=== PATIENT | male | born 1940 | race Caucasian/White ===

== ENCOUNTER 2019-06-24 13:51 | Inpatient (IN) | payer MEDICARE ==
[~2019-06-24] VITALS: Ht 177.8 cm; Wt 62.5 kg
[~2019-06-24 13:51] MED LIST: AMLO5TAB15 PO; ASPI-404 PO; BUDE160A3 IN; CHOL100055 PO; FINA5TAB4 PO; FLUN0.02; HYDR500T13 PO; LEV500T PO; OMEP20CA74 OR; SIMV-8 PO; TERA2CAP45 PO; [UNRECOGNIZED DRUG - CODE] OP; [UNRECOGNIZED DRUG - CODE] TD
[2019-06-24] MEDS ORDERED: IPRATROPIUM BROM 0.5 MG/2.5ML INH SOL NEB ONE (14:30)
[2019-06-24] MEDS ORDERED: methylPREDNISolone SOD SUCC 125 MG/2 ML VL IV ONE (14:30)
[2019-06-24] MEDS ORDERED: ALBUTEROL SULF 2.5 MG/0.5ML(0.5%) NEB SOLN NEB ONE (14:30)
[2019-06-24 14:31] LABS: Basophils # (auto) 0 uL; Basophils % (auto) 0.4 % (0.0-2.0); Eosinophils # (auto) 0.2 uL; Eosinophils % (auto) 2.5 % (0.0-7.0); Hematocrit 40.7 % (41.0-53.0); Hemoglobin 13.1 g/dL (13.5-17.5); Lymphocytes # (auto) 0.7 uL; Lymphocytes % (auto) 8.6 % (10.0-50.0); Mean Corpuscular Hgb Conc. 32.3 g/dL (32.0-36.0); Monocytes # (auto) 0.6 uL; Monocytes % (auto) 7.2 % (0.0-12.0); Neutrophils # (auto) 6.5 uL; Neutrophils % (auto) 81.3 % (37.0-80.0); Nucleated Red Blood Cells % 0.1 %; Platelet Count (auto) 194 10^3/uL (140-450); Red Blood Cells 4.11 10^6/uL (4.5-5.90)
[2019-06-24 14:46] LABS: INR 1.05 (0.9-1.15); Partial Thromboplastin Time 34.3 sec (23.64-32.05)
[2019-06-24 14:54] LABS: Albumin 2.7 g/dL (3.4-5.0); Calcium 8.5 mg/dL (8.5-10.1); Magnesium 2.1 mg/dL (1.6-2.6); Potassium 4.4 mmol/L (3.5-5.1)
[2019-06-24 14:57] LABS: BUN/Creatinine Ratio 10.2; Bilirubin, Total 0.4 mg/dL (0.2-1.0); Total Protein 6.2 g/dL (6.4-8.2)
[2019-06-24] MEDS ORDERED: PROMETHAZINE HCL 25 MG/ML 1ML IV PRN (16:15)
[2019-06-24] MEDS ORDERED: LACTULOSE 20Gm/30ML SOLN PO PRN (16:15)
[2019-06-24] MEDS ORDERED: TEMAZEPAM 15 MG CAP PO PRN (16:15)
[2019-06-24] MEDS ORDERED: NITROGLYCERIN 0.4 MG SL TAB SL PRN (16:15)
[2019-06-24] MEDS ORDERED: MORPHINE SULF INJ 2 MG/ML SYRINGE 1ML IV PRN (16:15)
[2019-06-24] MEDS ORDERED: traMADol HCL 50 MG TAB PO PRN (16:15)
[2019-06-24] MEDS ORDERED: LABETALOL HCL 5 MG/ML ML 20ML VIAL IV PRN (16:15)
[2019-06-24] MEDS ORDERED: ALBUTEROL SULF 2.5 MG/0.5ML(0.5%) NEB SOLN NEB PRN (16:15)
[2019-06-24] MEDS ORDERED: ACETAMINOPHEN 500 MG TAB PO PRN (16:15)
[2019-06-24] MEDS: SODIUM CHLORIDE 0.9% 1,000 ML IV SCH (17:29)
[2019-06-24] MEDS: FINASTERIDE 5 MG TAB PO SCH (18:53)
[2019-06-24] MEDS: ALBUTEROL SULF 2.5 MG/0.5ML(0.5%) NEB SOLN NEB SCH (18:58)
[2019-06-24] MEDS: BUDESONIDE (INHALATION) 0.5 MG/2 ML NEB NEB SCH (18:58)
[2019-06-24] MEDS: IPRATROPIUM BROM 0.5 MG/2.5ML INH SOL NEB SCH (18:58)
[2019-06-24] MEDS: ATORVASTATIN 20 MG TAB PO SCH (20:48)
[2019-06-24] MEDS: amLODIPine BESYLATE 5 MG TAB PO SCH (20:48)
[2019-06-24 21:04] LABS: Urine Bacteria NONE SEEN /hpf (None Seen); Urine Blood Negative /uL (Negative); Urine Specific Gravity 1.013 (1.001-1.035); Urine WBC 1 /hpf (0 - 3)
[2019-06-24] MEDS ORDERED: CAR3125T PO (21:17)
[2019-06-24] MEDS ORDERED: AMIT10TA6 PO (21:17)
[2019-06-24] MEDS ORDERED: FINA5TAB4 PO (21:17)
[2019-06-24] MEDS ORDERED: GABA-339 PO (21:17)
[2019-06-24] MEDS ORDERED: DONETAB5 PO (21:17)
[2019-06-24] MEDS ORDERED: CYAN100056 PO (21:17)
[2019-06-24] MEDS ORDERED: ATOR40TA52 PO (21:17)
[2019-06-24 22:00] VITALS: BP 120/75
[2019-06-24] MEDS ORDERED: BUDESONIDE FORMOTEROL FUMARATE IN SCH (22:00)
[2019-06-24 22:45] VITALS: BP 120/75
[2019-06-25] MEDS: IPRATROPIUM BROM 0.5 MG/2.5ML INH SOL NEB SCH ×5 (00:26→23:58)
[2019-06-25] MEDS: ALBUTEROL SULF 2.5 MG/0.5ML(0.5%) NEB SOLN NEB SCH ×5 (00:27→23:58)
[2019-06-25] MEDS: SODIUM CHLORIDE 0.9% 1,000 ML IV SCH ×2 (04:35→17:05)
[2019-06-25 05:00] VITALS: BP 130/77
[2019-06-25] MEDS: amLODIPine BESYLATE 5 MG TAB PO SCH ×3 (06:20→21:26)
[2019-06-25] MEDS: BUDESONIDE (INHALATION) 0.5 MG/2 ML NEB NEB SCH ×2 (07:35→18:09)
--- NOTE | 2019-06-25 07:40 | NUR ---
Opening Shift Note Assumed care of patient, AOx4. No S/S of distress/SOB or pain. Patient instructed on POC and to call for assistance. Bed positioned low, locked and call light within reach. Will continue to monitor for changes Q1hr and PRN. Signed: 06/25/19 at 1501 by YOANDY PERALES SN <Co-Signature Required> Co-Signed: 06/25/19 at 1501 by Tamika Puga RN
[2019-06-25 08:00] VITALS: BP 123/76
[2019-06-25 09:00] VITALS: BP 116/71
[2019-06-25] MEDS: ASPirin 81 mg TAB PO SCH (10:29)
[2019-06-25] MEDS: ENOXAPARIN SOD 40 MG/0.4 ML SYRINGE SC SCH (10:30)
[2019-06-25] MEDS: PANTOPRAZOLE 40 MG TAB PO SCH (10:30)
--- NOTE | 2019-06-25 11:35 | NUR ---
DR. KELLER AT BEDSIDE POC EXPLAINED TO PATIENT. Signed: 06/25/19 at 1456 by YOANDY PERALES <Co-Signature Required> Co-Signed: 06/25/19 at 1456 by Tamika Puga RN
[2019-06-25] MEDS ORDERED: IOHEXOL 350 MG/ML 100ML IJ ONE (11:36)
--- NOTE | 2019-06-25 12:30 | NUR ---
EKG OBTAINED ABNORMAL EKG OBTAINED. NO S/S OF DISTRESS NOTED IN PATIENT. EKG READ BY DR. MCLEAN, AND HE RECOMMENDS EKG TO BE REPEATED IN 12 HR. Signed: 06/25/19 at 1455 by YOANDY PERALES <Co-Signature Required> Co-Signed: 06/25/19 at 1455 by Tamika Puga RN
[2019-06-25 13:15] VITALS: BP 124/73
--- NOTE | 2019-06-25 13:35 | NUR ---
UA COLLECTED UA COLLECTED AND SENT TO LAB VIA [facility] SYSTEM. Signed: 06/25/19 at 1459 by YOANDY PERALES <Co-Signature Required> Co-Signed: 06/25/19 at 1459 by Tamika Puga RN
[2019-06-25 14:21] LABS: Cannabinoid Screen, Urine NEGATIVE (NEGATIVE)
[2019-06-25 14:25] LABS: Alcohol, Urine < 3.0 mg/dL (0-5); Amphetamine Screen, Urine NEGATIVE (NEGATIVE); Barbiturate Scree,Urine NEGATIVE (NEGATIVE); Benzodiazephine Screen, Urine NEGATIVE (NEGATIVE); Cocaine Screen, Urine NEGATIVE (NEGATIVE); Opiate Scree,Urine NEGATIVE (NEGATIVE); Phencyclidine Screen, Urine NEGATIVE (NEGATIVE)
--- NOTE | 2019-06-25 16:20 | NUR ---
PT BROTHER (RON) BROUGHT HOME MEDICATION, ALL MEDICATIONS HAVE BEEN REVIEWED. Signed: 06/25/19 at 1856 by YOANDY PERALES <Co-Signature Required> Co-Signed: 06/25/19 at 1856 by Tamika Puga RN
[2019-06-25 17:00] VITALS: BP 125/79
[2019-06-25] MEDS ORDERED: CARV3.1240 PO (17:41)
[2019-06-25] MEDS ORDERED: AMIT10TA6 PO (17:41)
[2019-06-25] MEDS: FINASTERIDE 5 MG TAB PO SCH (18:06)
--- NOTE | 2019-06-25 18:57 | NUR ---
IV insertion Patient informed that he accidentally pulled out IV on left AC. No trauma to site, cleansed arm from blood that had leaked. New IV obtained via clean sterile technique by inserting 20 gauge catheter at right forearm after 1 attempt. IV secured properly. No trauma to site. Patient tolerated well. Signed: 06/25/19 at 1900 by YOANDY PERALES <Co-Signature Required> Co-Signed: 06/25/19 at 1900 by Tamika Puga RN
--- NOTE | 2019-06-25 19:01 | NUR ---
CLOSING NOTE PT IN BED NO SIGNS OF DISTRESSED NOTED. BED IN LOW POSITION AND LOCKED. CALL LIGHT WITHIN REACH. WILL GIVE REPORT TO BROOKE NURSE. Signed: 06/25/19 at 190 by YOANDY PERALES <Co-Signature Required> Co-Signed: 06/25/19 at 1901 by Tamika Puga RN
[2019-06-25] MEDS: ATORVASTATIN 20 MG TAB PO SCH (21:26)
[2019-06-25 21:51] VITALS: BP 144/76
--- NOTE | 2019-06-25 23:59 | NUR ---
RT NOTE PT REFUSED 0000 BREATHING TREATMENT DID NOT WANT TO BE WAKEN UP. PT STATED HE NEEDED SLEEP DO NOT WAKE HIM. PT SLEEPING NO DISTRESS NOTED.
[2019-06-26] MEDS: SODIUM CHLORIDE 0.9% 1,000 ML IV SCH ×2 (01:19→17:59)
[2019-06-26 05:01] VITALS: BP 141/84
[2019-06-26] MEDS: amLODIPine BESYLATE 5 MG TAB PO SCH ×3 (05:43→21:40)
[2019-06-26] MEDS: BUDESONIDE (INHALATION) 0.5 MG/2 ML NEB NEB SCH ×2 (06:05→20:33)
[2019-06-26] MEDS: ALBUTEROL SULF 2.5 MG/0.5ML(0.5%) NEB SOLN NEB SCH ×4 (06:05→23:31)
[2019-06-26] MEDS: IPRATROPIUM BROM 0.5 MG/2.5ML INH SOL NEB SCH ×4 (06:05→23:31)
--- NOTE | 2019-06-26 07:30 | NUR ---
Opening Shift Note Assumed care of patient, awake and alert x 4. Pt resting comfortably in bed no S/S of distress/SOB or pain. Pt instructed on POC and to call for assistance PRN, will continue to monitor for changes Q1hr and PRN. Signed: 06/26/19 at 1052 by YOANDY PERALES <Co-Signature Required> Co-Signed: 06/26/19 at 1052 by Tamika Puga RN
[2019-06-26 08:00] VITALS: BP 138/87
[2019-06-26] MEDS: ENOXAPARIN SOD 40 MG/0.4 ML SYRINGE SC SCH (08:59)
[2019-06-26] MEDS: ASPirin 81 mg TAB PO SCH (08:59)
[2019-06-26] MEDS: PANTOPRAZOLE 40 MG TAB PO SCH (08:59)
[2019-06-26 09:00] VITALS: BP 138/87
[2019-06-26] MEDS ORDERED: diphenhdrAMINE HCL 25 MG CAP PO ONE (09:15)
--- NOTE | 2019-06-26 09:30 | NUR ---
DR. Yosvany KELLER AT BEDSIDE PT INSTRUCTED IN POC BY DOCTOR. Signed: 06/26/19 at 1054 by YOANDY PERALES SN <Co-Signature Required> Co-Signed: 06/26/19 at 1054 by Tamika Puga RN
[2019-06-26 16:51] VITALS: BP 139/96
[2019-06-26] MEDS: FINASTERIDE 5 MG TAB PO SCH (17:59)
--- NOTE | 2019-06-26 18:33 | NUR ---
CLOSING NOTE PT IN BED HAVING DINNER NO SIGNS OF DISTRESSED NOTED. BED IN LOW POSITION AND LOCKED. CALL LIGHT WITHIN REACH. WILL GIVE REPORT TO BROOKE NURSE Signed: 06/26/19 at 183 by YOANDY PERALES <Co-Signature Required> Co-Signed: 06/26/19 at 1833 by Tamika Puga RN
--- NOTE | 2019-06-26 19:30 | NUR ---
Opening Shift Note Assumed care of patient, awake and alert. No S/S of distress/SOB or pain. Instructed on POC and to call for assist PRN, will continue to monitor for changes Q1hr and PRN. Signed: 06/26/19 at 2153 by YOANDY CHILDERS SN <Co-Signature Required> Co-Signed: 06/26/19 at 2153 by Felipa Daigle RN
[2019-06-26] MEDS: ATORVASTATIN 20 MG TAB PO SCH (21:40)
[2019-06-26 22:00] VITALS: BP 135/93
[2019-06-26 22:03] VITALS: BP 131/79
--- NOTE | 2019-06-26 23:31 | NUR ---
RT NOTE PT ASKED NOT TO BE WOKEN FOR THIS SCHEDULED TX IF SLEEPING. PT SLEEPING. NO SIGNS OF RESP DISTRESS NOTED BY RT. PT AWARE TO HAVE RT PAGED IF NEEDED. RT NAME AND PAGER NUMBER ON PT BOARD.
[2019-06-27 04:38] VITALS: BP 149/88
[2019-06-27] MEDS: amLODIPine BESYLATE 5 MG TAB PO SCH ×3 (06:07→21:45)
[2019-06-27] MEDS: IPRATROPIUM BROM 0.5 MG/2.5ML INH SOL NEB SCH ×3 (06:11→19:03)
[2019-06-27] MEDS: ALBUTEROL SULF 2.5 MG/0.5ML(0.5%) NEB SOLN NEB SCH ×3 (06:11→19:03)
[2019-06-27] MEDS: BUDESONIDE (INHALATION) 0.5 MG/2 ML NEB NEB SCH ×2 (06:12→19:03)
[2019-06-27] MEDS: SODIUM CHLORIDE 0.9% 1,000 ML IV SCH ×2 (06:36→21:30)
[2019-06-27 08:00] VITALS: BP_SYST 131; BP_SYST 149; BP_DIAS 82; BP_DIAS 88
--- NOTE | 2019-06-27 08:00 | NUR ---
ASSESSMENT NOTE PATIENT IS ALERT ORIENTED X4, RESTING IN BED COMFORTABLY, NO DISTRESS NOTED, ABLE TO SELF REPOSITION AND VERBALIS HIS NEEDS, PATIENT ENCOURAGE TO USE THE CALL LIGHT IF HE NEED ANYTHING OR OR HELP TO WALK TO BATHROOM, VERBALIS UNDERSTANDING, CALL LIGHT WITHIN REACH.
--- NOTE | 2019-06-27 08:35 | NUR ---
DR KELLER AT BED SIDE FOLLOWING UP ON PT, INFORM PT THAT WE ARE WAITING FOR THE ECHO RESULTS, AND FROM THERE WILL DECIDE FOR DISCHARGE PLANING TOMORROW, PT VERBALIS UNDERSTANDING.
[2019-06-27] MEDS: PANTOPRAZOLE 40 MG TAB PO SCH (09:27)
[2019-06-27] MEDS: ASPirin 81 mg TAB PO SCH (09:27)
[2019-06-27] MEDS: ENOXAPARIN SOD 40 MG/0.4 ML SYRINGE SC SCH (09:28)
[2019-06-27 12:30] VITALS: BP 118/65
--- NOTE | 2019-06-27 16:10 | NUR ---
PT CONTINUE STABLE, NO DISTRESS NOTED, USE URINAL NEEDED
[2019-06-27 16:57] VITALS: BP 139/78
[2019-06-27] MEDS: FINASTERIDE 5 MG TAB PO SCH (17:07)
--- NOTE | 2019-06-27 18:34 | NUR ---
DINNER SITTING UP EATING DINNER, NO DISTRESS NOTED, CONTINUE MONITORING
--- NOTE | 2019-06-27 19:30 | NUR ---
Opening Shift Note Assumed care of patient, laying in bed awake and alert. Respirations are normal and non-labored, no S/S of distress/SOB or pain. Instructed on POC and to call for assistance, call light within reach. Safety precautions in place, bed set at lowest position. Will continue to monitor for changes Q1hr and PRN. Signed: 06/27/19 at 2110 by YOANDY CHILDERS SN <Co-Signature Required> Co-Signed: 06/27/19 at 2110 by Minna Jones RN
--- NOTE | 2019-06-27 19:46 | NUR ---
RT NOTE PT WAS SEEN BY RT FOR HHN TX. PT TOLERATES WELL VIA MASK. NO ADVERSE REACTION NOTED. PT REQUESTING TO HAVE THE IV REMOVED. CURTIS JAIMES NOTIFIED. CONT ORDERED Addendum: 06/27/19 at 2012 by Shirley Radford RT Amended: Links added.
--- NOTE | 2019-06-27 19:46 | NUR ---
RT NOTE PT WAS SEEN BY R
--- NOTE | 2019-06-27 19:46 | NUR ---
RT NOTE PT WAS SEEN BY RT FOR HHN TX. PT
[2019-06-27 21:00] VITALS: BP 133/87
[2019-06-27 21:29] VITALS: BP 139/78
[2019-06-27] MEDS: ATORVASTATIN 20 MG TAB PO SCH (21:46)
--- NOTE | 2019-06-28 00:22 | NUR ---
RT NOTE PT WAS SEEN BY RT FOR HHN TX. PT WAS SLEEPING BUT EASILY AWAKENED. PT REFUSED HHN TX RIGHT NOW TO SLEEP AND WILL TAKE IT IN THE MORNING. NO SOB OR DISTRESS NOTED. CURTIS JAIMES NOTIFIED AND WILL CALL IF TX NEEDED Addendum: 06/28/19 at 0024 by Shirley Radford RT Amended: Links added.
[2019-06-28 04:30] VITALS: BP 128/74
[2019-06-28] MEDS: IPRATROPIUM BROM 0.5 MG/2.5ML INH SOL NEB SCH ×3 (06:39→11:42)
[2019-06-28] MEDS: ALBUTEROL SULF 2.5 MG/0.5ML(0.5%) NEB SOLN NEB SCH ×3 (06:39→11:42)
[2019-06-28] MEDS: BUDESONIDE (INHALATION) 0.5 MG/2 ML NEB NEB SCH (06:39)
[2019-06-28] MEDS: amLODIPine BESYLATE 5 MG TAB PO SCH ×2 (06:40→14:15)
[2019-06-28 08:00] VITALS: BP 128/77
--- NOTE | 2019-06-28 08:00 | NUR ---
Opening Shift Note Assumed care of patient, awake and alert. No S/S of distress/SOB or pain. Instructed on POC and to call for assist PRN, will continue to monitor for changes Q1hr and PRN.
[2019-06-28] MEDS: PANTOPRAZOLE 40 MG TAB PO SCH (09:26)
[2019-06-28] MEDS: ENOXAPARIN SOD 40 MG/0.4 ML SYRINGE SC SCH (09:26)
[2019-06-28] MEDS: ASPirin 81 mg TAB PO SCH (09:26)
[2019-06-28] MEDS: SODIUM CHLORIDE 0.9% 1,000 ML IV SCH (09:26)
[2019-06-28] MEDS ORDERED: FUROSEMIDE 20 MG TAB PO ONE (11:00)
[2019-06-28 12:00] VITALS: BP 137/89
[2019-06-28 13:16] VITALS: BP 137/89
--- NOTE | 2019-06-28 15:23 | NUR ---
Discharge instructions given as ordered. Encourage to follow up with PMD (FOLLOW UP WITH YOUR PRIMARY CARE PROVIDER WITH IN 1 WEEKS AT THE [facility]. )as instructed. All questions and concerns addressed. Patient verbalized understanding. Medication reconciliation form completed and copy given to patient. IV removed with catheter intact, pressure dressing applied. Telemetry unit returned to ICU. Patient taken to vehicle via wheelchair with all personal belongings, accompanied by staff and family member. No distress noted at time of departure.
[2019-06-28] MEDS ORDERED: FUROSEMIDE 20 MG TAB PO SCH (18:00)
== END 2019-06-28 15:23 | disposition home or self-care (01) | DRG 292 ==
LOC: EDBD 13:51 → ER 13:55 → TELE 13:56 → TELE-CENTR 19:44
PROVIDERS: ADMIT Internal Medicine; ATTEND Internal Medicine
DX: I11.0 Hypertensive heart disease with heart failure (principal); J96.10 Chronic respiratory failure, unspecified whether with hypoxia or hypercapnia; I50.43 Acute on chronic combined systolic (congestive) and diastolic (congestive) heart failure; E11.9 Type 2 diabetes mellitus without complications; E78.5 Hyperlipidemia, unspecified; R55 Syncope and collapse; E78.00 Pure hypercholesterolemia, unspecified; I27.20 Pulmonary hypertension, unspecified; J44.9 Chronic obstructive pulmonary disease, unspecified; I44.0 Atrioventricular block, first degree; R91.1 Solitary pulmonary nodule; Z79.82 Long term (current) use of aspirin; Z99.81 Dependence on supplemental oxygen; Z79.899 Other long term (current) drug therapy; Z83.3 Family history of diabetes mellitus
CPT/HCPCS: 36415; 36600; 70450; 71045; 71275; 80053; 80307; 80320; 81001; 82550; 82805; 83735; 83880; 84443; 84484; 85025; 85379; 85610; 85652; 85730; 87081; 93005; 93306; 93886; 93970; 94640; 94761; 96374; 96375; 97116; G0378